=== PATIENT | female | born 1950 | race Two or more races ===

== ENCOUNTER → 2020-12-21 | Outpatient (CLI) | payer MEDICARE, OTHER ==
--- NOTE | 2020-12-21 10:21 | MR ---
EXAMINATION TYPE: MR lumbar spine wo con DATE OF EXAM: 12/21/2020 COMPARISON: Lumbar spine x-ray December 21, 2013 HISTORY: Low back pain into nhung legs TECHNIQUE: Multiplanar, multisequence imaging of the lumbar spine is performed without IV contrast. FINDINGS: Sagittal images of the lumbar spine show vertebral body heights to appear satisfactory. Sli ght grade 1 retrolisthesis L4 on L5. Multilevel disc desiccation. There is moderate to advanced disc space narrowing with heterogeneous Modic type II endplate changes L4-L5 level . There is moderate dis c space narrowing with vacuum disc phenomenon L5-S1 level. There is mild/moderate disc space narrowin g L3-L4 level. The conus medullaris is normal in position and signal ending at L1-L2 disc space level . The bone marrow signal intensity is overall heterogeneous Axial images show mild facet arthropathy T12-L1 level. Axial images at L1-L2 level show mild to moderate facet degenerative changes and ligamentum flavum hy pertrophy mildly effacing posterior lateral thecal sac laterally. Axial images at L2-L3 level show moderate facet degenerative changes and ligament flavum hypertrophy effacing posterior lateral thecal sac bilaterally. Axial images at L3-L4 level shows moderate facet degenerative changes and ligamentum flavum hypertrop hy effacing posterior lateral thecal sac. There is mild/moderate broad disc bulge effacing the anteri or thecal sac on axial image 13. There is mild bilateral anterior inferior neural foraminal narrowing . Axial images at L4-L5 levels with spondylolisthesis with moderate broad disc bulge and right paracent ral disc protrusion component effacing the anterior thecal sac. There is [id number] facet degen erative changes bilaterally. There is moderate bilateral inferior neural foraminal narrowing. Axial images at L5-S1 level show mild/moderate facet arthropathy bilaterally. There is moderate broad disc bulge minimally effacing anterior thecal sac. There is moderate bilateral neural foraminal narr owing noted. Findings slightly greater on the right. Paraspinal muscle bulk is fairly well preserved. IMPRESSION: Multilevel degenerative changes in the lumbar spine as detailed above.
== END | disposition home or self-care (01) ==
LOC: RADMRIMAIN 09:24
PROVIDERS: ATTEND Family Medicine
DX: M51.37 Other intervertebral disc degeneration, lumbosacral region (principal); M51.27 Other intervertebral disc displacement, lumbosacral region; M99.73 Connective tissue and disc stenosis of intervertebral foramina of lumbar region; M47.816 Spondylosis without myelopathy or radiculopathy, lumbar region
CPT/HCPCS: 72148

== ENCOUNTER → 2021-01-10 | Outpatient (CLI) | payer MEDICARE, OTHER ==
--- NOTE | 2021-01-13 11:16 | MM ---
Reason for exam: screening (asymptomatic). Last mammogram was performed 7 years and 6 months ago. History: Patient is postmenopausal. Physical Findings: A clinical breast exam by your physician is recommended on an annual basis and results should be correlated with mammographic findings. MG 3D Screening Mammo W/Cad Bilateral CC and MLO view(s) were taken. Prior study comparison: July 10, 2013, mammogram, performed at [facility]. The breast tissue is heterogeneously dense. This may lower the sensitivity of mammography. Scattered benign calcifications. There is no discrete abnormality. No significant changes when compared with prior studies. ASSESSMENT: Benign, BI-RAD 2 RECOMMENDATION: Routine screening mammogram of both breasts in 1 year.
== END | disposition home or self-care (01) ==
LOC: RADMAMWWP 07:58
PROVIDERS: ATTEND Family Medicine
DX: Z12.31 Encounter for screening mammogram for malignant neoplasm of breast (principal); Z78.0 Asymptomatic menopausal state
CPT/HCPCS: 77063; 77067

== ENCOUNTER 2021-02-13 12:47 | Emergency (ER) | payer MEDICARE, OTHER ==
[2021-02-13 13:04] VITALS: BP 123/70; PULSE 80; RESP 18; TEMP 98
--- NOTE | 2021-02-13 14:02 | XR ---
EXAMINATION TYPE: XR shoulder complete RT DATE OF EXAM: 02/13/2021 CLINICAL HISTORY: Pain since falling injury one week ago. TECHNIQUE: Three views of the right shoulder are obtained. COMPARISON: None. FINDINGS: There is no acute fracture/dislocation evident in the right shoulder. Mild to moderate geovanni rowing glenohumeral joint with mild spurring. Acromioclavicular joint shows mild narrowing. Distal a cromion morphology unremarkable. The visualized ribs are intact and unremarkable. IMPRESSION: There is no acute fracture or dislocation in the right shoulder.
--- NOTE | 2021-02-13 14:03 | XR ---
EXAMINATION TYPE: XR ankle complete LT DATE OF EXAM: 02/13/2021 COMPARISON: NONE HISTORY: Pain FINDINGS: Three views of the ankle demonstrate the ankle mortise to be intact and symmetric. There is an avulsi on fracture of the lateral malleolus with soft tissue edema and hematoma. Calcaneal spurs are noted. IMPRESSION: 1. Avulsion fracture lateral malleolus.
--- NOTE | 2021-02-13 14:10 | ED ---
Lower Extremity Injury HPI - General Chief Complaint: Extremity Injury, Lower Stated Complaint: ankle injury Time Seen by Provider: 02/13/21 13:16 Source: patient, family Mode of arrival: ambulatory Limitations: language barrier - History of Present Illness Initial Comments: 70-year-old female presents to the emergency department with a chief complaint of left ankle pain. States about one week ago she suffered a fall with an inversion to the left ankle and now she is complaining of pain. States that she has developed swelling in the region which has gradually improved, however it has also returned over the last few days after she has been ambulating more unusual. She also reports an injury to the right shoulder during to follow denies any head injuries or loss of consciousness or blood thinners. She denies any paresthesias or weakness in the region. - Related Data Home Medications Medication Instructions Recorded Confirmed Citalopram Hydrobromide [CeleXA] 20 mg PO DAILY 01/24/16 01/24/16 LORazepam [Ativan] 0.5 mg PO HS 01/24/16 01/24/16 Sertraline [Zoloft] 25 mg PO DAILY 01/24/16 01/24/16 Previous Rx's Medication Instructions Recorded Pantoprazole Sodium [Protonix] 20 mg PO BID #14 tab 01/24/16 Allergies Allergy/AdvReac Type Severity Reaction Status Date / Time No Known Allergies Allergy Verified 02/13/21 12:59 Review of Systems ROS Statement: Those systems with pertinent positive or pertinent negative responses have been documented in the HPI. ROS Other: All systems not noted in ROS Statement are negative. Past Medical History Past Medical History: GERD/Reflux History of Any Multi-Drug Resistant Organisms: None Reported Past Surgical History: No Surgical Hx Reported Past Psychological History: No Psychological Hx Reported Smoking Status: Never smoker Past Alcohol Use History: None Reported Past Drug Use History: None Reported General Exam Limitations: language barrier General appearance: alert, in no apparent distress Head exam: Present: atraumatic, normocephalic, normal inspection Eye exam: Present: normal appearance, PERRL, EOMI Pupils: Present: normal accommodation ENT exam: Present: normal exam, normal oropharynx, mucous membranes moist Respiratory exam: Present: normal lung sounds bilaterally. Absent: respiratory distress Cardiovascular Exam: Present: regular rate, normal rhythm, normal heart sounds. Absent: systolic murmur Extremities exam: Present: tenderness (Lateral malleoli tenderness of the left ankle. No midfoot or fifth metatarsal tenderness. Also some tenderness over the right anterior deltoid), normal capillary refill, other (Palpable DP and PT bilaterally. Sensation is intact.). Absent: normal inspection (Mild swelling noted on the left ankle. No signs of ecchymosis), full ROM (Limited range of motion with inversion of the left ankle), pedal edema, joint swelling, calf tenderness Back exam: Present: normal inspection, full ROM. Absent: tenderness Neurological exam: Present: alert, oriented X3 Psychiatric exam: Present: normal affect, normal mood Skin exam: Present: warm, dry, intact, normal color Course Vital Signs 02/13/21 13:00 Temperature 98 F Pulse Rate 80 Respiratory 18 Rate Blood Pressure 123/70 O2 Sat by Pulse 97 Oximetry Procedures - Orthopedic Splinting/Casting Injury #1 Side: left Lower Extremity Injury Location: ankle Lower Extremity Immobilizer: posterior splint, stirrup splint, Alex wrap, synthetic pre-padded splint Other Orthopedic Equipment: crutches Medical Decision Making - Medical Decision Making 70-year-old female presents to emergency Department with a chief complaint of ankle pain and fall. On physical examination, she is neurovascularly intact. X-ray reveals an avulsion fracture of the lateral malleolus. X-ray of the shoulder is unremarkable. I did apply a posterior short leg splint with ankle stirrup. Advised to follow-up with her resume specialist Dr. Hensley. Otherwise Tylenol or Motrin for symptom control. Return parameters were t horoughly discussed the patient was in a standing agreeable. Grandson is also they're to translate. Case discussed with Dr. Horta. Disposition Clinical Impression: Closed left ankle fracture, Fall Disposition: HOME SELF-CARE Condition: Stable Instructions (If sedation given, give patient instructions): Ankle Fracture (DC) Additional Instructions: Follow-up with Dr. hensley. Return to emergency department if symptoms worsen. Is patient prescribed a controlled substance at d/c from ED?: No Referrals: Mat Clarke MD [Primary Care Provider] - 1-2 days Shena Hensley DO [Doctor of Osteopathic Medicine] - 1-2 days Time of Disposition: 14:27
== END 2021-02-13 15:02 | disposition home or self-care (01) ==
LOC: EC 12:47
DX: S82.892A Other fracture of left lower leg, initial encounter for closed fracture (principal); K21.9 Gastro-esophageal reflux disease without esophagitis; W19.XXXA Unspecified fall, initial encounter
CPT/HCPCS: 29515; 99283

== ENCOUNTER → 2022-03-10 | Outpatient (CLI) | payer MEDICARE, OTHER ==
[2022-03-10 10:02] LABS: Appearance,Urine Clear (Clear); Bilirubin,Urine Negative (Negative); Blood,Urine Negative (Negative); Color,Urine Yellow; Glucose,Urine (UA) Negative (Negative); Ketones,Urine Negative (Negative); Leukocyte Esterase,Urine Large (Negative); Mucus,Urine Moderate /hpf; Nitrite,Urine Negative (Negative); PH, Urine 5.5 (5.0-8.0); Protein,Urine Negative (Negative); RBC,Urine <1 /hpf (0-5); Specific Gravity,Urine 1.017 (1.001-1.035); Squamous Epithelial Cell,Urine 1 /hpf (0-4); Urobilinogen,Urine <2.0 mg/dL (<2.0); WBC,Urine 22 /hpf (0-5)
--- NOTE | 2022-03-10 10:32 | XR ---
EXAMINATION TYPE: XR chest 2V DATE OF EXAM: 03/10/2022 COMPARISON: Chest x-ray 01/24/2016 HISTORY: Presurgical testing TECHNIQUE: Frontal and lateral views of the chest are obtained. FINDINGS: There is no focal air space opacity, pleural effusion, or pneumothorax seen. The cardiac silhouette size is within normal limits. There is elevation the right hemidiaphragm. Patient is rotat ed. The osseous structures are intact. IMPRESSION: No acute cardiopulmonary process.
[2022-03-10 14:40] LABS: INR 1.03 (0.90-1.11); Prothrombin Time 11.6 sec (9.9-11.9)
== END | disposition home or self-care (01) ==
LOC: LABPAT 08:30
PROVIDERS: ATTEND Orthopaedic Surgery Orthopaedic Surgery of the Spine
DX: Z01.812 Encounter for preprocedural laboratory examination (principal)
CPT/HCPCS: 71046; 81001; 85610; 87070

== ENCOUNTER → 2022-03-17 | Outpatient (CLI) | payer MEDICARE, OTHER ==
[2022-03-17 10:08] LABS: Appearance,Urine Clear (Clear); Bilirubin,Urine Negative (Negative); Blood,Urine Negative (Negative); Color,Urine Yellow; Glucose,Urine (UA) Negative (Negative); Ketones,Urine Negative (Negative); Leukocyte Esterase,Urine Negative (Negative); Nitrite,Urine Negative (Negative); PH, Urine 8.5 (5.0-8.0); Protein,Urine Trace (Negative); Specific Gravity,Urine 1.018 (1.001-1.035); Urobilinogen,Urine <2.0 mg/dL (<2.0)
== END | disposition home or self-care (01) ==
LOC: LABPAT 08:51
PROVIDERS: ATTEND Orthopaedic Surgery Orthopaedic Surgery of the Spine
DX: Z01.812 Encounter for preprocedural laboratory examination (principal); M48.00 Spinal stenosis, site unspecified
CPT/HCPCS: 81003

== ENCOUNTER 2022-03-18 05:52 | Inpatient (IN) | payer MEDICARE, OTHER ==
[2022-03-13 09:57] VITALS: BMI 28.4
[~2022-03-18 05:52] MED LIST: ceFAZolin 1,000 MG in SODIUM CHLORIDE 0.9% IRRIGATIO 1,000 ML IRRIGATION PRN
[2022-03-18] MEDS ORDERED: DEXAMETHASONE SOD PHOSPHATE 4 MG/ML 1 ML VIAL IV ONE (06:08)
[2022-03-18] MEDS ORDERED: ONDANSETRON 4 MG/2 ML VIAL ONE (06:49)
[2022-03-18] MEDS ORDERED: LACTATED RINGERS 1,000 ML IV ONE ×2 (07:17→11:49)
[2022-03-18] MEDS: LACTATED RINGERS 1,000 ML IV SCH (07:17)
[2022-03-18] MEDS ORDERED: ONDANSETRON 4 MG/2 ML VIAL IVP ONE (07:17)
[2022-03-18] MEDS ORDERED: fentaNYL (PF) 50 MCG/ML 2 ML AMP ONE (07:25)
[2022-03-18] MEDS ORDERED: PHENYLEPHRINE-0.9% NACL SYG 1,000 MCG/10 ML SYRINGE ONE (07:25)
[2022-03-18] MEDS ORDERED: KETAMINE 10 MG/ML 20 ML VIAL ONE (07:25)
[2022-03-18] MEDS ORDERED: HEPARIN SODIUM,PORCINE 10,000 UNIT/ML 1 ML VIAL ONE (07:25)
[2022-03-18] MEDS ORDERED: SODIUM CHLORIDE 0.9% IRRIG 1,000 ML BTL IRRIGATION ONE (07:25)
[2022-03-18] MEDS ORDERED: SUCCINYLCHOLINE CHLORIDE 100 MG/5 ML SYR IV ONE (07:25)
[2022-03-18] MEDS ORDERED: NEOSTIGMINE 1 MG/ML 10 ML VIAL ONE (07:25)
[2022-03-18] MEDS ORDERED: MIDAZOLAM 2 MG/2 ML VIAL ONE (07:25)
[2022-03-18] MEDS ORDERED: LIDOCAINE 2% INJ 20 MG/ML (2 ML VIAL) ONE (07:25)
[2022-03-18] MEDS ORDERED: ePHEDrine 50 MG/ML 1 ML VIAL ONE (07:25)
[2022-03-18] MEDS ORDERED: ROCURONIUM 10 MG/ML (5 ML VIAL) IV ONE (07:25)
[2022-03-18] MEDS ORDERED: GLYCOPYRROLATE 0.2 MG/ML 2 ML VIAL ONE (07:25)
[2022-03-18] MEDS ORDERED: GELATIN SPONGE,ABSORB (SMALL) 1 EACH SPONGE TOPICAL ONE (08:09)
[2022-03-18] MEDS ORDERED: THROMBIN (BOVINE) 5,000 UNIT VIAL TOPICAL ONE (08:09)
[2022-03-18] MEDS ORDERED: BUPIVACAIN-EPI 0.25%-1:200,000 30 ML VIAL SQ ONE (08:09)
[2022-03-18] MEDS ORDERED: BENZOCAINE/MENTHOL LOZENG 1 EACH LOZENGE MUCOUS MEM PRN (12:00)
[2022-03-18] MEDS ORDERED: HYDROmorphone 0.5 MG/0.5 ML SYRINGE IVP PRN (12:00)
[2022-03-18] MEDS ORDERED: ACETAMINOPHEN TAB 500 MG TAB PO PRN (12:05)
--- NOTE | 2022-03-18 12:12 | P.OP ---
Date of Procedure: 03/18/22 Preoperative Diagnosis: Severe spinal stenosis L3 4 L4 5, degenerative disc disease, spondylolisthesis L3 4, facet arthrosis, low back pain, lower extremity radiculopathy, neurogenic claudication Postoperative Diagnosis: Same Anesthesia: GETA Pathology: none sent Condition: stable Disposition: PACU Description of Procedure: DESCRIPTION OF PROCEDURE(S): BRIEF OPERATIVE NOTE Preoperative Diagnosis: Spondylolisthesis , spinal stenosis , lower extremity radiculopathy, lower extremity weakness, neurogenic claudication, low back pain, degenerative disc disease Postoperative Diagnosis: Same Procedure: Laminectomy and decompression L3 [address] navigation aided Minimally invasive Posterior lateral decompression and facet fusion L3 4 L4 5 Minimally invasive Transforaminal lumbar interbody fusion for a 360 fusion L3 4 L4 5 Discectomy for decompression L3 4 L4 5 Placement of interbody graft L3 4 L4 5 Use of computer navigation for fusion L3 4 and 5 Local autogenous bone grafting Aspiration of bone marrow from the vertebral body pedicle Use of bone graft extenders Surgeon: Dr. Hensley Patient Service Rep: Graham ALVAREZ who is present throughout the entire the case persistence during positioning, dissection, exposure, visualization, and all crucial elements of the case as well as closure. Anesthesia: General anesthesia per Estimated blood loss: Approximately 300 mL, with 123 mL given back through Cell Saver Complications: None apparent Components implanted: K2M minimally invasive [place] pedicle screw system withscrews measuring 6.5 mm in diameter to rods one [place] interbody cage with 10 mL of osteo amp bio4 bone graft substitute and 30 mL of the BX bone fibers to supplement the local autogenous bone graft and bone marrow aspirate Disposition: To recovery room in good stable condition. OPERATIVE INDICATIONS The patient has had severe issues at their lower extremity in her lower back over the past several years with significant worsening over the past several months. The patient only speaks minimal Ukrainian and has been accompanied by her daughter who functions well as a substance abuse technician for us. Over the past few months the patient had pain at their back and their lower extremities. The patient is having severe radicular symptoms at their lower extremity with weakness. The patient is having significant pain in their back. They are unable to obtain any comfort. We did aggressive conservative treatment with medications therapy and interventional pain management however thery were not having any relief. The patient also showed evidence of a listhesis with some dynamic instability. The patient has been through conservative treatment. We discussed various treatment options including surgery, and the patient wishes to proceed with surgery We discussed the risk, patient's alternatives and benefits of surgery including but not limited to, risk of bleeding risk of infection, risk of need for further surgery, risk of decreased, loss of motion, muscle function, malunion nonunion, hardware failure, nerve damage, paralysis, heart attack, blindness and . They understood issues with the current pandemic and the possibility of exposure. The patient had severe changes at her low back with significant debility and I felt that she would need inpatient admission as it was going to be difficult to manage her mobility and pain control postoperatively and would likely take greater than 2 midnights here in the hospital. OPERATIVE SUMMARY After discussing all the risks, patient alternatives and benefits at length, the patient elected to proceed with surgical intervention, signed informed consent, and presented for their procedure. The patient's daughter was at bedside and functioned as a substance abuse technician preoperatively. The patient was seen and examined in the preoperative holding area and the surgical site was marked. The patient was given antibiotics and brought to the operating room. The patient was sedated and intubated by anesthesia in standard fashion. The patient was positioned on to the operating room table in a prone position on the appropriate frame which was well-padded and well molded. We were careful to pad any bony prominences and pressure points. We were careful to maintain the patient's cervical spine and good neutral alignment and position throughout. The patient was prepped and draped in a normal standard fashion. An appropriate timeout and keystone protocol performed. We were able to proceed with the surgery. The local wound area was infiltrated with local anesthetic. Over the right iliac crest I was able to make small stab incisions and establish a guidepin screw fixation to the iliac crest 2. I was able place the computer referencing device over the guidepins to establish an appropriate reference point for the Ziem CT navigation. We then were able to place patient in an appropriate drape and do a navigation spin for visualization and 3-D reconstruction of the lumbar spine. I was able utilize C-arm guidance and navigation to establish appropriate position over the pedicles bilaterally at the appropriate levels at L3 4 and 5 . With the appropriate levels confirmed was able to make small incisions over the appropriate pedicle sites bilaterally. Utilizing the computer navigation device I was able to establish bony landmarks at the right iliac crest for a bony reference point for the navigation device. I was able to establish a Jamshidi needle over the lateral aspect of the pedicle and advanced the trocar into the pedicle being careful not to breech superiorly inferiorly medially or laterally using computer navigation device. Position was confirmed regularly with AP and lateral images on C-arm and with the computer navigation device at the appropriate levels bilaterally. I was able to establish the trocar into the pedicle appropriately into the posterior aspect of the vertebral body bilaterally at the appropriate levels. This was done at each of the pedicle positions and each of the vertebrae. At the superior vertebrae of L3 on the right I was able to take approximately 25 mL of bone aspiration for use later in the case to supplement the allograft and autograft bone. I was able place the guidewire into the trocar and into the vertebral body appropriately under C-arm guidance. Dissection was taken down over the wire to the appropriate starting position for the screw placed. The appropriate length screw was chosen, threaded over the guidewire and screwed appropriately into the pedicle and vertebral body under C-arm guidance in excellent alignment and position with good bony purchase. This is done at each of the screw sites at the appropriate levels at L3 4 and 5. With the screws intact I extended the incision to connect the screw hole sites on the most symptomatic side on the right. I dissected down to establish access over the pars and lamina to the base of the spinous process. I was able to expose the facet joint. The capsule the facet was taken down and showed some facet arthrosis at the joint. I was able to use a combination of curettes and Kerrison rongeurs and a high-speed drill to take down the facet joint and do a facetectomy. At both levels there was severe facet arthrosis and significant osteophytic spurring. I was able get excellent foraminal decompression and central decompression with undermining across midline to perform a laminectomy centrally and contralaterally. I was able get good central decompression. The ligamentum flavum was taken down to further decompress centrally and at bilateral neural foramen. I was able to expose the disc space and visualize the traversing nerve root. Note was made of some disc protrusion and disc herniation that was abutting the traversing nerve root at the level causing further compression of the nerve root. I first worked at L4 5 and L3 4 At L4 5 there is near complete collapse of the disc space. I was able to establish a annulotomy at the appropriate level protecting soft tissue and neural structures. Note was made of some disc desiccation at the disc. I performed a complete discectomy with accommodation of curettes and rasps and scrapers. I was able get good endplate preparation at the disc space. I sized for the appropriate size interbody spacer protecting the soft tissue and neural structures. The wound was copiously irrigated and suctioned dry. There is no evidence of any dural tear or leak. This was done at L3 4 and L4 5. I was able to pack the disc space with local autogenous bone graft as well as a small amount of bone graft which was also placed into the interbody cage itself. Protecting the soft tissue structures and neural structures I was able place the interbody cage in good alignment and good position with good fit and fill at the interbody space. Position was confirmed with C-arm guidance. Good hemostasis maintained. There is no evidence of any dural tear or leak. The wound was irrigated and suctioned dry. With the hardware intact, intraoperative C-arm imaging was again taken which showed good alignment and position of the hardware at the appropriate levels at L3 4 and 5. We were then able to measure, contour and place the rods and appropriate hardware bilaterally. I was able to place capcrews, tighten them down, and torque them with the torque screwdriver appropriately. With this intact I was able to place the local autogenous bone graft with additional bone graft enhancer as necessary into the posterior lateral gutters over the decorticated transverse processes and facet joints on the contralateral side. The remainder of the bone graft was placed over the facet joint on the contralateral side after taking down the facet joint capsule. With the bone graft intact, a stable construct, and good decompression at the appropriate levels, we were able to proceed with closure. Good hemostasis was maintained. There is no evidence of dural tear or leak. The fascia was closed for a watertight closure. he subcuticular tissue was closed with absorbable suture. The wound was cleaned and dried and dressed with the appropriate dressing. The drapes were broken down. The patient was gently rolled back onto their hospital bed being careful to maintain their cervical spine and good neutral alignment and position. They were woken up by anesthesia, extubated, and brought to the recovery room in good stable condition. The patient will be admitted to the hospital for appropriate postoperative care, medical management and monitoring. We will continue to follow them closely about the postoperative course.
--- NOTE | 2022-03-18 12:19 | FL ---
EXAMINATION TYPE: FL guidance operating room DATE OF EXAM: 03/18/2022 HISTORY: Fluoroscopy time 20 seconds of fluoroscopy provided. IMPRESSION: 1. Fluoroscopy time.
[2022-03-18] MEDS: HYDROmorphone 0.5 MG/0.5 ML SYRINGE IVP PRN ×2 (12:46→15:21)
[2022-03-18] MEDS: SODIUM CHLORIDE 0.9% 1,000 ML IV SCH (16:29)
--- NOTE | 2022-03-18 17:26 | P.CONS ---
History of Present Illness - Reason for Consult Consult date: 03/18/22 Medical management Requesting physician: Shena Hensley - Chief Complaint Chronic back pain with neurogenic claudication - History of Present Illness 71-year-old Bosn[place] female with past medical significant for chronic back pain with spinal stenosis with lower extremity weakness, neurogenic claudication postoperative day #0 for Laminectomy L3-4, L 4-5. Patient does not have a significant past medical history except for depression and anxiety and chronic back pain. She is alert oriented 3. She does not speak Occitan her son and her granddaughter at the bedside helping with translation. Patient denies any chest pain or shortness of breath. Patient denies any nausea vomiting or abdominal pain. Review of system: All 14 review of systems evaluated and all negative except for above. Physical examination: General: non toxic, no distress, appears at stated age Derm: warm, dry Head: atraumatic, normocephalic, symmetric Eyes: EOMI, no lid lag, anicteric sclera Mouth: no lip lesion, mucus membranes moist Cardiovascular: S1S2 reg, no murmur, positive posterior tibial pulse bilateral, Lungs: CTA bilateral, no rhonchi, no rales , no accessory muscle use Abdominal: soft, nontender to palpation, no guarding, no appreciable organomegaly Ext: no gross muscle atrophy, no edema, no contractures Neuro: CN II-XI grossly intact, no focal neuro deficits Psych: Alert, oriented, appropriate affect Assessment and plan: #Chronic pain secondary to Spinal stenosis with right lower extremity radiculopathy and neurogenic claudication -Status post Laminectomy L3-4, L 4-5. -PT/OT -Pain control and DVT prophylaxis per primary team #Depression and anxiety -Resume trazodone and Celexa #GERD -Resume PPIs Thank you for allowing us to participate in the care of this pleasant patient. Do not hesitate to contact us with questions. Someone can be reached from the [facility] hospitalist group all hours of the day at [phone] or via [employer]. Past Medical History Past Medical History: GERD/Reflux, Osteoarthritis (OA) History of Any Multi-Drug Resistant Organisms: None Reported Past Surgical History: No Surgical Hx Reported Past Anesthesia/Blood Transfusion Reactions: No Reported Reaction Additional Past Anesthesia/Blood Transfusion Reaction / Comm: no hx blood transfusion Past Psychological History: Anxiety, Depression Smoking Status: Never smoker Past Alcohol Use History: None Reported Past Drug Use History: None Reported - Past Family History Mother Family Medical History: No Reported History Medications and Allergies Home Medications Medication Instructions Recorded Confirmed Type Citalopram Hydrobromide [CeleXA] 20 mg PO QAM 01/24/16 03/13/22 History Acetaminophen Tab [Tylenol Tab] 500 - 1,000 mg PO Q6HR PRN 03/13/22 03/13/22 History Aspirin 81 mg PO DAILY 03/13/22 03/13/22 History Omeprazole [PriLOSEC] 40 mg PO AC-[id number] 03/13/22 03/13/22 History traZODone HCL [Desyrel] 50 mg PO HS 03/13/22 03/13/22 History nitrofurantoin macrocrystaL 100 mg PO BID 03/18/22 03/18/22 History [Nitrofurantoin] Allergies Allergy/AdvReac Type Severity Reaction Status Date / Time No Known Allergies Allergy Verified 03/18/22 06:32 Physical Exam Vitals: Vital Signs Temp Pulse Pulse Resp BP Pulse Ox 03/18/22 14:30 97.6 F 74 18 125/71 97 03/18/22 13:45 77 16 126/64 100 03/18/22 13:30 79 16 131/64 99 03/18/22 13:15 71 16 122/64 97 03/18/22 13:00 74 16 119/63 100 03/18/22 12:45 75 16 123/66 98 03/18/22 12:30 74 16 117/64 98 03/18/22 12:15 85 16 107/59 99 03/18/22 12:00 97.0 F L 80 16 134/68 99 03/18/22 06:42 97.2 F L 67 20 149/82 96 Intake and Output 03/18/22 03/18/22 03/18/22 06:59 14:59 22:59 Intake Total 2851 Output Total 530 Balance 2321 Intake: IV 2851 Output: Urine 230 Estimated Blood Loss 300 Other: Weight 80 kg 80 kg
[2022-03-18] MEDS: ONDANSETRON 4 MG/2 ML VIAL IVP PRN (19:00)
[2022-03-18] MEDS: NITROFURANTOIN MONOHYD/M-CRYST 100 MG CAP PO SCH (20:14)
[2022-03-18] MEDS: traZODone HCL 50 MG TAB PO SCH (20:14)
[2022-03-18] MEDS: CYCLOBENZAPRINE 10 MG TAB PO PRN (22:23)
[2022-03-18] MEDS: HYDROmorphone 1 MG/ML 1 ML SYRINGE IVP PRN (23:40)
[2022-03-19] MEDS: LACTATED RINGERS 1,000 ML IV SCH (00:38)
[2022-03-19] MEDS: HYDROmorphone 1 MG/ML 1 ML SYRINGE IVP PRN ×2 (03:40→08:26)
[2022-03-19] MEDS: SODIUM CHLORIDE 0.9% 1,000 ML IV SCH ×2 (03:48→15:45)
[2022-03-19] MEDS: HYDROcodone/APAP 5-325MG 1 EACH TAB PO PRN ×4 (07:04→23:29)
[2022-03-19] MEDS: CITALOPRAM HYDROBROMIDE 20 MG TAB PO SCH (08:24)
[2022-03-19] MEDS: PANTOPRAZOLE 40 MG TABLET PO SCH (08:24)
[2022-03-19] MEDS: ASPIRIN 81 MG PO SCH (08:24)
[2022-03-19] MEDS: SENNOSIDES-DOCUSATE SODIUM 1 EACH TAB PO SCH (08:24)
[2022-03-19] MEDS: NITROFURANTOIN MONOHYD/M-CRYST 100 MG CAP PO SCH ×2 (08:24→20:30)
[2022-03-19 09:00] LABS: Basophils # (A) 0.01 X 10*3/uL (0.00-0.10); Basophils % (A) 0.1 %; Eosinophils # (A) 0 X 10*3/uL (0.04-0.35); Eosinophils % (A) 0 %; HCT 30.9 % (37.2-46.3); HGB 10.2 g/dL (12.0-15.0); Immature Grans, Automated 0.4 %; Lymphocytes # (A) 0.98 X 10*3/uL (0.90-5.00); Lymphocytes % (A) 11.5 %; MCH 31.3 pg (27.0-32.0); MCV 94.8 fL (80.0-97.0); Mean Platelet Volume 11.1 fL (9.5-12.2); Monocytes # (A) 0.91 X 10*3/uL (0.20-1.00); Monocytes % (A) 10.6 %; NRBC Per 100 WBC 0 /100 WBCS (0.0-0.0); Neutrophils # (A) 6.62 X 10*3/uL (1.80-7.70); Neutrophils % (A) 77.4 %; Platelet Count 145 X 10*3/uL (140-440); RBC 3.26 X 10*6/uL (4.10-5.20); RDW 13.3 % (11.5-14.5); WBC 8.55 X 10*3/uL (4.50-10.00)
[2022-03-19 09:03] LABS: African American GFR (CKD) 113.7 (60.0-200.0); Anion Gap 8.8 mmol/L (10.00-18.00); Calcium 8.3 mg/dL (8.7-10.3); Carbon Dioxide 23.2 mmol/L (20.0-27.5); Non-African American GFR(CKD) 98.1 (60.0-200.0); Potassium 3.9 mmol/L (3.5-5.5)
--- NOTE | 2022-03-19 11:08 | P.PN ---
Progress Note - Text Progress Note Date: 03/19/22 Postoperative day #1 Patient is seen and examined today at bedside. The patient has some pain around the surgical site as expected. Pain is being controlled with medication. Her relative is there at bedside to act as a tapper balance wheel screw hole. The patient states that her legs are doing better but pain in her back is significant. She was able to sit up but only for short times morning so far. She is tolerating some diet. She still has her Avila intact. Physical Exam Afebrile with stable vital signs Abdomen is soft nontender. Chest has good excursion deep and space expiration The incision site is clean dry and intact. No erythema there is no purulence. Extremities have not had neurologic change from prior to surgery. She has sustained dorsal flexion plantar flexion and EHL intact at her bilateral lower extremities Calves and thighs were soft nontender without evidence of DVT. Assessment/Plan Postoperative day #1 status post minimally invasive decompression fusion L3 4 L4 5 for her severe spinal stenosis and lower extremity radiculopathy and neurogenic claudication Patient is progressing as expected from the surgery. She is already having improvement in her lower extremities bilaterally with the decompression. Her pain is primarily that from her surgical site with this procedure. We will continue to increase the patient's mobilization with therapy. We need to get the Avila out as she is able. We will continue her antibiotics while the Avila is intact. We will continue oxana we will have case management see her as well for discharge planning n control with oral or IV medications. We'll continue to follow patient closely.
[2022-03-19] MEDS: CYCLOBENZAPRINE 10 MG TAB PO PRN ×2 (13:28→23:20)
--- NOTE | 2022-03-19 14:02 | P.PN ---
Subjective Progress Note Date: 03/19/22 71-year-old female admitted 2 days ago for an elective L3, L4, L5 laminectomy. She is postop day #1. She is complaining of moderate to severe pain on the surgical site as expected just improving with analgesics. She was able to sit up at the side of breath today with therapy but has not ambulated yet. Denies any numbness or tingling in her lower extremities, no focal numbness or weakness, no fevers or chills, no shortness of breath. Patient does not speak Kiswahili, her [id number] is at bedside acting as a respite care provider Objective - Vital Signs Vital signs: Vital Signs Temp 99.4 F 03/19/22 11:28 Pulse 91 03/19/22 11:28 Resp 16 03/19/22 11:28 BP 95/52 03/19/22 11:28 Pulse Ox 95 03/19/22 11:28 FiO2 Intake & Output 03/18/22 03/19/22 03/19/22 18:59 06:59 18:59 Intake Total 3091 0 Output Total 530 1000 1700 Balance 2561 -1000 -1700 Weight 80 kg Intake: IV 2851 Oral 240 0 Output: Urine 230 1000 1700 Estimated Blood Loss 300 Other: Voiding Method Indwelling Catheter Indwelling Catheter - Exam General: In no acute distress, awake alert and oriented Derm: warm, dry Head: atraumatic, normocephalic, symmetric Eyes: EOMI, pupils equal round reactive Mouth: no lip lesion, mucus membranes moist Cardiovascular: S1S2 reg, no murmur, positive posterior tibial pulse bilateral, Lungs: CTA bilateral, no rhonchi, no rales , no accessory muscle use Abdominal: soft, nontender to palpation, no guarding, no appreciable organomegaly Ext: no gross muscle atrophy, no edema, no contractures Neuro: CN II-XI grossly intact, no focal neuro deficits Psych: Alert, oriented, appropriate affect - Labs CBC & Chem 7: 03/19/22 05:32 03/19/22 05:32 Labs: Abnormal Lab Results - Last 24 Hours (Table) 03/19/22 03/19/22 Range/Units 05:32 05:32 RBC 3.26 L (4.10-5.20) X 10*6/uL Hgb 10.2 L (12.0-15.0) g/dL Hct 30.9 L (37.2-46.3) % Eosinophils # 0 L (0.04-0.35) X 10*3/uL Sodium 134 L (135-145) mmol/L Anion Gap 8.80 L (10.00-18.00) mmol/L Creatinine 0.5 L (0.6-1.5) mg/dL BUN/Creatinine Ratio 24.00 H (12.00-20.00) Ratio Calcium 8.3 L (8.7-10.3) mg/dL Assessment and Plan Plan: Chronic pain secondary to Spinal stenosis with right lower extremity radiculopathy and neurogenic claudication -Postop day #1 Status post Laminectomy L3-4, L 4-5. -Continue PT/OT -Pain control and DVT prophylaxis #Depression and anxiety -Resume trazodone and Celexa #GERD -Resume PPIs Time with Patient: Less than 30
[2022-03-19] MEDS: traZODone HCL 50 MG TAB PO SCH (20:30)
[2022-03-20] MEDS: LACTATED RINGERS 1,000 ML IV SCH (03:05)
[2022-03-20] MEDS: HYDROcodone/APAP 5-325MG 1 EACH TAB PO PRN ×3 (03:42→16:44)
[2022-03-20] MEDS: SODIUM CHLORIDE 0.9% 1,000 ML IV SCH ×2 (03:42→17:16)
--- NOTE | 2022-03-20 07:16 | P.PN ---
Progress Note - Text Progress Note Date: 03/20/22 Orthopedic Spine History of present illness: Patient is a pleasant 71-year-old female who is seen and examined at the bedside following posterior lateral decompression and fusion performed Wednesday. Patient does not speak Lebanese. Her 17-year-old granddaughter is sitting at the bedside to act as a crm system administrator. Patient continues to have significant pain in her lumbar spine. She's had difficulty with mobility due to her pain. She was able to sit at the bedside yesterday but was not able to ambulate throughout the room. She denies any lower extremity weakness or radiculopathy bilaterally. She states her pain is significant at her lumbar spine. Her Avila catheter remains intact. She was able to eat some breakfast this morning. Patient's family states they are wishing for the patient to be discharged home with home care at the time of discharge. They do not want the patient to be discharged to a rehabilitation facility. Currently does not complain of nausea, vomiting, fever, or chills. Patient states pain is being controlled. Patient had more difficulty with pain control overnight. Physical Exam Lumbar Fusion: Status post surgical day number 2 Patient is awake, alert, and oriented 3 Vital signs stable Good chest excursion with deep inspiration and expiration Dorsiflexion, plantarflexion, and extensor hallucis longus positive sustained bilaterally No signs or symptoms of DVT; no calf pain; pneumatic cuffs intact bilateral lower extremities Optifoam dressings are intact with some blood at the dressing sites over the lumbar spine and right iliac crest; no erythema, purulence, or signs of infection Neurovascularly intact bilaterally lower extremities Avila catheter intact Assessment: Status post L3-4 and L4-5 minimally invasive posterior lateral decompression and fusion with transforaminal lumbar interbody fusion Low back pain L3-4 and L4-5 severe spinal stenosis L3-4 spondylolisthesis Lumbar degenerative disc disease Lumbar facet arthrosis Neurogenic claudication Plan: 1. Ambulate as tolerated; work with Physical Therapy to increase mobilization. It was discussed in significant detail the importance of trying to increase the patient's mobility and ambulation with physical therapy today. A prescription is written, signed, and provided a case management to obtain a 2 wheeled walker to help the patient age and ambulation. This walker will be obtained prior to the patient's discharge home. 2. Continue pain control with IV and oral medications MAPS has been reviewed today, 03/20/2022, with an Overall Overdose Risk Score of . An "Opiod Start Talking" Form has been signed and placed in the patient's chart. A prescription has been written for Patient is also given a prescription for cyclobenzaprine 10 mg 1 tab 3 times a day as needed for muscle spasm, dispensed #60. Patient given a prescription for Senokot-S 1 tab twice a day as needed for constipation, dispensed #60. Medications are sent to the patient's regular pharmacy per request of the family. 3. Dressings will be removed and changed to nonstick Telfa and Tegaderm; patient may shower with dressings intact 4. We will plan to discontinue her Avila catheter once the patient is able to increase her mobility and ambulation. We would like to discontinue her Avila catheter today. 5. Medical management can continue to manage patient for patient's other medical diagnoses 6. We will continue to follow the patient closely; patient continues to have difficulty with mobilization and ambulation postoperatively. She has been working with physical therapy but is having significant difficulty postoperatively increasing her mobilization. She was only able to sit at a bedside yesterday. She continues to require IV and oral medications for pain control. I do not feel the patient is ready for discharge home. Patient will continue to remain in the hospital until her symptoms improve and her pain is better controlled. Patient should be inpatient status during her admission. Patient will most likely remain in the hospital over the next couple days postoperatively. She has been seen by case management who is setting up home care at the time of discharge. 7. Patient can follow-up with Graham Huang PA-C or Dr. Uriel Hensley at [facility] in 2-3 weeks following discharge
[2022-03-20 08:43] LABS: Basophils # (A) 0.01 X 10*3/uL (0.00-0.10); Basophils % (A) 0.1 %; Eosinophils # (A) 0 X 10*3/uL (0.04-0.35); Eosinophils % (A) 0 %; HCT 31.1 % (37.2-46.3); HGB 10.3 g/dL (12.0-15.0); Immature Grans, Automated 0.5 %; Lymphocytes % (A) 8.6 %; MCH 31.7 pg (27.0-32.0); MCHC 33.1 g/dL (32.0-37.0); MCV 95.7 fL (80.0-97.0); Mean Platelet Volume 10.7 fL (9.5-12.2); Monocytes # (A) 0.81 X 10*3/uL (0.20-1.00); Monocytes % (A) 8.7 %; NRBC Per 100 WBC 0 /100 WBCS (0.0-0.0); Neutrophils # (A) 7.63 X 10*3/uL (1.80-7.70); Neutrophils % (A) 82.1 %; Platelet Count 137 X 10*3/uL (140-440); RBC 3.25 X 10*6/uL (4.10-5.20); RDW 13.2 % (11.5-14.5)
[2022-03-20 09:06] LABS: African American GFR (CKD) 113.7 (60.0-200.0); Albumin 3.2 g/dL (3.8-4.9); Albumin/Globulin Ratio 1.33 (1.60-3.17); Anion Gap 9.6 mmol/L (10.00-18.00); BUN/Creat Ratio 15.4 Ratio (12.00-20.00); Blood Urea Nitrogen 7.7 mg/dL (9.0-27.0); Calcium 8.7 mg/dL (8.7-10.3); Carbon Dioxide 22.4 mmol/L (20.0-27.5); Globulin 2.4 g/dL (1.6-3.3); Non-African American GFR(CKD) 98.1 (60.0-200.0); Potassium 3.9 mmol/L (3.5-5.5); Total Bilirubin 1.2 mg/dL (0.30-1.20); Total Protein 5.6 g/dL (6.2-8.2)
[2022-03-20] MEDS: ASPIRIN 81 MG PO SCH (09:16)
[2022-03-20] MEDS: PANTOPRAZOLE 40 MG TABLET PO SCH (09:16)
[2022-03-20] MEDS: CITALOPRAM HYDROBROMIDE 20 MG TAB PO SCH (09:16)
[2022-03-20] MEDS: SENNOSIDES-DOCUSATE SODIUM 1 EACH TAB PO SCH (09:16)
[2022-03-20] MEDS: NITROFURANTOIN MONOHYD/M-CRYST 100 MG CAP PO SCH (09:16)
[2022-03-20] MEDS: CYCLOBENZAPRINE 10 MG TAB PO PRN ×2 (09:19→16:44)
--- NOTE | 2022-03-20 16:45 | P.PN ---
Subjective Progress Note Date: 03/20/22 Postop day #2 for a posterior lateral decompression and fusion. She is still complaining of significant amount of pain this has improved compared to yesterday. She was able to stand up with therapy today and take a few steps. She denies any lower extremity weakness or numbness, rogers catheter will be removed today. She is tolerating a regular diet. Overall she is improving, p brisa is to be discharged home with home care within the next 24-48 hours Objective - Vital Signs Vital signs: Vital Signs Temp 97.7 F 03/20/22 12:07 Pulse 98 03/20/22 12:07 Resp 16 03/20/22 12:07 BP 119/73 03/20/22 12:07 Pulse Ox 98 03/20/22 12:07 FiO2 Intake & Output 03/19/22 03/20/22 03/20/22 18:59 06:59 18:59 Output Total 3200 2250 500 Balance -3200 -2250 -500 Output: Urine 3200 2250 500 Other: Voiding Method Indwelling Catheter Indwelling Catheter Indwelling Catheter # Voids 1 - Exam General: In no acute distress, awake alert and oriented Derm: warm, dry Head: atraumatic, normocephalic, symmetric Eyes: EOMI, pupils equal round reactive Mouth: no lip lesion, mucus membranes moist Cardiovascular: S1S2 reg, no murmur, positive posterior tibial pulse bilateral, Lungs: CTA bilateral, no rhonchi, no rales , no accessory muscle use Abdominal: soft, nontender to palpation, no guarding, no appreciable organome jimmy Ext: no gross muscle atrophy, no edema, no contractures Neuro: CN II-XI grossly intact, no focal neuro deficits Psych: Alert, oriented, appropriate affect - Labs CBC & Chem 7: 03/20/22 06:29 03/20/22 06:29 Labs: Abnormal Lab Results - Last 24 Hours (Table) 03/20/22 03/20/22 Range/Units 06:29 06:29 RBC 3.25 L (4.10-5.20) X 10*6/uL Hgb 10.3 L (12.0-15.0) g/dL Hct 31.1 L (37.2-46.3) % Plt Count 137 L (140-440) X 10*3/uL Immature Gran # 0.05 H (0.00-0.04) X 10*3/uL Lymphocytes # 0.80 L (0.90-5.00) X 10*3/uL Eosinophils # 0 L (0.04-0.35) X 10*3/uL Anion Gap 9.60 L (10.00-18.00) mmol/L BUN 7.7 L (9.0-27.0) mg/dL Creatinine 0.5 L (0.6-1.5) mg/dL Glucose 114 H (70-110) mg/dL Total Protein 5.6 L (6.2-8.2) g/dL Albumin 3.2 L (3.8-4.9) g/dL Albumin/Globulin Ratio 1.33 L (1.60-3.17) g/dL Assessment and Plan Plan: Chronic pain secondary to Spinal stenosis with right lower extremity radiculopathy and neurogenic claudication -Postop day #2 Status post posterior lateral decompression and fusion -pain improving but is still significant and is requiring IV narcotics -Patient will need to remain in the hospital until her pain is adequately controlled and she is ambulating well -Continue physical and occupational therapy -Family wishes for patient to be discharged home with home care #Depression and anxiety -Resume trazodone and Celexa #GERD -Resume PPIs Time with Patient: Less than 30
[2022-03-20] MEDS: HYDROmorphone 1 MG/ML 1 ML SYRINGE IVP PRN (18:13)
[2022-03-20] MEDS: traZODone HCL 50 MG TAB PO SCH (20:48)
[2022-03-21] MEDS: HYDROmorphone 1 MG/ML 1 ML SYRINGE IVP PRN ×2 (00:20→05:00)
[2022-03-21] MEDS: SODIUM CHLORIDE 0.9% 1,000 ML IV SCH ×2 (05:03→19:41)
[2022-03-21] MEDS: LACTATED RINGERS 1,000 ML IV SCH (06:22)
[2022-03-21 08:53] LABS: Basophils # (A) 0.01 X 10*3/uL (0.00-0.10); Basophils % (A) 0.1 %; Eosinophils # (A) 0.04 X 10*3/uL (0.04-0.35); Eosinophils % (A) 0.6 %; HCT 30.2 % (37.2-46.3); Immature Grans, Automated 0.4 %; Lymphocytes # (A) 1.08 X 10*3/uL (0.90-5.00); MCH 31.5 pg (27.0-32.0); MCHC 33.1 g/dL (32.0-37.0); MCV 95.3 fL (80.0-97.0); Mean Platelet Volume 10.7 fL (9.5-12.2); Monocytes % (A) 8.9 %; NRBC Per 100 WBC 0 /100 WBCS (0.0-0.0); Platelet Count 141 X 10*3/uL (140-440); RBC 3.17 X 10*6/uL (4.10-5.20); RDW 13.2 % (11.5-14.5); WBC 6.76 X 10*3/uL (4.50-10.00)
[2022-03-21] MEDS: ASPIRIN 81 MG PO SCH (09:35)
[2022-03-21] MEDS: SENNOSIDES-DOCUSATE SODIUM 1 EACH TAB PO SCH (09:35)
[2022-03-21] MEDS: PANTOPRAZOLE 40 MG TABLET PO SCH (09:36)
[2022-03-21] MEDS: CITALOPRAM HYDROBROMIDE 20 MG TAB PO SCH (09:36)
[2022-03-21] MEDS: CYCLOBENZAPRINE 10 MG TAB PO PRN ×2 (09:39→19:40)
[2022-03-21] MEDS: HYDROcodone/APAP 5-325MG 1 EACH TAB PO PRN ×2 (10:30→19:40)
[2022-03-21 11:18] LABS: Albumin/Globulin Ratio 1.2 (1.60-3.17); Anion Gap 7.9 mmol/L (10.00-18.00); BUN/Creat Ratio 15.5 Ratio (12.00-20.00); Blood Urea Nitrogen 9.3 mg/dL (9.0-27.0); Calcium 8.5 mg/dL (8.7-10.3); Carbon Dioxide 23.1 mmol/L (20.0-27.5); Globulin 2.5 g/dL (1.6-3.3); Non-African American GFR(CKD) 92.4 (60.0-200.0); Potassium 3.7 mmol/L (3.5-5.5); Total Bilirubin 0.9 mg/dL (0.30-1.20); Total Protein 5.5 g/dL (6.2-8.2)
--- NOTE | 2022-03-21 14:26 | P.PN ---
Subjective Progress Note Date: 03/21/22 Postop day #3 for a posterior lateral decompression and fusion. Pain is improving, controlled with oral narcotics. She is able to ambulate more with therapy today. She denies any lower extremity weakness or numbness, rogers catheter removed. She is tolerating a regular diet. Overall she is improving, plan is to be discharged home with home care within the next 24-48 hours Objective - Vital Signs Vital signs: Vital Signs Temp 98.9 F 03/21/22 05:00 Pulse 102 H 03/21/22 05:00 Resp 16 03/21/22 05:00 BP 138/76 03/21/22 05:00 Pulse Ox 95 03/21/22 05:00 FiO2 Intake & Output 03/20/22 03/21/22 03/21/22 18:59 06:59 18:59 Output Total 500 Balance -500 Output: Urine 500 Other: Voiding Method Indwelling Catheter Toilet Bedside Commode # Voids 1 2 - Exam General: In no acute distress, awake alert and oriented Derm: warm, dry Head: atraumatic, normocephalic, symmetric Eyes: EOMI, pupils equal round reactive Mouth: no lip lesion, mucus membranes moist Cardiovascular: S1S2 reg, no murmur, positive posterior tibial pulse bilateral, Lungs: CTA bilateral, no rhonchi, no rales , no accessory muscle use Abdominal: soft, nontender to palpation, no guarding, no appreciable organomegaly Ext: no gross muscle atrophy, no edema, no contractures Neuro: CN II-XI grossly intact, no focal neuro deficits Psych: Alert, oriented, appropriate affect - Labs CBC & Chem 7: 03/21/22 05:36 03/21/22 05:36 Labs: Abnormal Lab Results - Last 24 Hours (Table) 03/21/22 03/21/22 Range/Units 05:36 05:36 RBC 3.17 L (4.10-5.20) X 10*6/uL Hgb 10.0 L (12.0-15.0) g/dL Hct 30.2 L (37.2-46.3) % Anion Gap 7.90 L (10.00-18.00) mmol/L Glucose 115 H (70-110) mg/dL Calcium 8.5 L (8.7-10.3) mg/dL Total Protein 5.5 L (6.2-8.2) g/dL Albumin 3.0 L (3.8-4.9) g/dL Albumin/Globulin Ratio 1.20 L (1.60-3.17) g/dL Assessment and Plan Plan: Chronic pain secondary to Spinal stenosis with right lower extremity radiculopathy and neurogenic claudication -Postop day #3 Status post posterior lateral decompression and fusion -pain improving today -Patient will need to remain in the hospital until her pain is adequately controlled and she is ambulating well -Continue physical and occupational therapy -Family wishes for patient to be discharged home with home care #Depression and anxiety -Resume trazodone and Celexa #GERD -Resume PPIs anticipated DC home within 24 hrs Time with Patient: Less than 30
[2022-03-21] MEDS: ONDANSETRON 4 MG/2 ML VIAL IVP PRN (19:44)
[2022-03-21] MEDS: traZODone HCL 50 MG TAB PO SCH (19:45)
[2022-03-22] MEDS: CYCLOBENZAPRINE 10 MG TAB PO PRN ×2 (02:38→19:13)
[2022-03-22] MEDS: HYDROcodone/APAP 5-325MG 1 EACH TAB PO PRN ×2 (02:38→06:17)
[2022-03-22] MEDS: LACTATED RINGERS 1,000 ML IV SCH (06:12)
[2022-03-22] MEDS ORDERED: HYDROcodone/APAP 7.5-325MG 1 EACH TAB PO PRN (08:11)
[2022-03-22] MEDS: SODIUM CHLORIDE 0.9% 1,000 ML IV SCH ×2 (08:13→20:54)
[2022-03-22] MEDS: SENNOSIDES-DOCUSATE SODIUM 1 EACH TAB PO SCH (08:13)
[2022-03-22] MEDS: ASPIRIN 81 MG PO SCH (08:13)
[2022-03-22] MEDS: CITALOPRAM HYDROBROMIDE 20 MG TAB PO SCH (08:13)
[2022-03-22] MEDS: PANTOPRAZOLE 40 MG TABLET PO SCH (08:13)
[2022-03-22] MEDS: MAGNESIUM HYDROXIDE 2,400 MG/10 ML CUP PO PRN (08:17)
--- NOTE | 2022-03-22 10:11 | P.PN ---
Subjective Progress Note Date: 03/22/22 Principal diagnosis: Status post minimally invasive L3 to L4 L4 to L5 lateral decompression and fusion This is a 71 year-old female post minimally invasive L3 to L4 and L4 to L5 decompression and fusion. This is post-op day 4. The patient was evaluated at the bedside today. Her daughter is present at the bedside. The patient denies nausea, vomiting, abdominal pain, shortness of breath, and chest pain this morning. She states her pain is moderately controlled at this time. The patient has been up with assistance. Objective - Vital Signs Vital signs: Vital Signs Temp 98.1 F 03/22/22 05:00 Pulse 77 03/22/22 05:00 Resp 16 03/22/22 05:00 BP 150/76 03/21/22 21:33 Pulse Ox 92 L 03/22/22 05:00 FiO2 Intake & Output 03/21/22 03/22/22 03/22/22 18:59 06:59 18:59 Intake Total 950 590 Balance 950 590 Intake: Intake, IV Titration 950 Amount Sodium Chloride 0.9% 1, 900 000 ml @ 75 mls/hr IV . [id number] [facility] Rx#:[id number] ceFAZolin 2 gm In Sodium 50 Chloride 0.9% 50 ml @ 100 mls/hr IVPB Q8H [facility] Rx#: [id number] Oral 590 Other: Voiding Method Bedside Commode Bedside Commode # Voids 2 - Exam The patient is a 71-year-old female who is in no acute distress. She is alert and oriented 3. Abdomen is soft and nontender. Chest has good excursion with deep inspiration. Incision site is clean dry and intact. Dressing changed today. No erythema or purulent drainage. Extremities has not had neurological change from prior to surgery. She sustained dorsiflexion and plantar flexion and EHL function. She has good foot and ankle motion. Bilateral calves are soft and nontender. Neurological and circulatory status is intact. - Labs CBC & Chem 7: 03/21/22 05:36 03/21/22 05:36 Labs: Abnormal Lab Results - Last 24 Hours (Table) 03/21/22 Range/Units 05:36 Anion Gap 7.90 L (10.00-18.00) mmol/L Glucose 115 H (70-110) mg/dL Calcium 8.5 L (8.7-10.3) mg/dL Total Protein 5.5 L (6.2-8.2) g/dL Albumin 3.0 L (3.8-4.9) g/dL Albumin/Globulin Ratio 1.20 L (1.60-3.17) g/dL Assessment and Plan (1) Spinal stenosis Current Visit: Yes Status: Acute Code(s): M48.00 - SPINAL STENOSIS, SITE UNSPECIFIED SNOMED Code(s): 50921372 Plan: 1. Continue pain control, increase to [place] 7.5mg 2. Continue physical therapy and ambulation 3. Anticipate discharge home vs. skilled rehab. Family is leaning towards rehab at this time.
--- NOTE | 2022-03-22 13:39 | P.PN ---
Subjective Progress Note Date: 03/22/22 Hosp[ital course 71-year-old [place] female with past medical significant for chronic back pain with spinal stenosis with lower extremity weakness, neurogenic claudication postoperative day #0 for Laminectomy L3-4, L 4-5. Patient does not have a significant past medical history except for depression and anxiety and chronic back pain. She is alert oriented 3. She does not spe ak Hungarian her son and her granddaughter at the bedside helping with translation. Patient denies any chest pain or shortness of breath. Patient denies any nausea vomiting or abdominal pain. Subjective Patient seen and evaluated at bedside, today patient does not report any worsening of his breathing or report any new significant chest pain. Patient remains in no acute distress. Patient questions and concerns addressed at bedside, proper counseling done. Plan discussed with nursing staff. Objective Physicial exam General: non toxic, no distress, appears at stated age Derm: warm, dry Head: atraumatic, normocephalic, symmetric Eyes: EOMI, no lid lag, anicteric sclera Mouth: no lip lesion, mucus membranes moist Cardiovascular: S1S2 reg, no murmur, positive posterior tibial pulse bilateral, Lungs: CTA bilateral, no rhonchi, no rales , no accessory muscle use Abdominal: soft, nontender to palpation, no guarding, no appreciable org anomegaly Ext: no gross muscle atrophy, no edema, no contractures Neuro: CN II-XI grossly intact, no focal neuro deficits Psych: Alert, oriented, appropriate affect Assessment and Plan #Chronic pain secondary to Spinal stenosis with right lower extremity radiculopathy and neurogenic claudication -Status post posterior lateral decompression and fusion -pain improving today -Patient will need to remain in the hospital until her pain is adequately controlled and she is ambulating well -Continue physical and occupational therapy -Family wishes for patient to be discharged home with home care #Depression and anxiety -Resume trazodone and Celexa #GERD -Resume PPIs Patient medically stable, pending discharge to rehab likely on Wednesday Objective - Vital Signs Vital signs: Vital Signs Temp 98.1 F 03/22/22 05:00 Pulse 77 03/22/22 05:00 Resp 16 03/22/22 05:00 BP 150/76 03/21/22 21:33 Pulse Ox 92 L 03/22/22 05:00 FiO2 Intake & Output 03/21/22 03/22/22 03/22/22 18:59 06:59 18:59 Intake Total 950 590 Balance 950 590 Intake: Intake, IV Titration 950 Amount Sodium Chloride 0.9% 1, 900 000 ml @ 75 mls/hr IV . [id number] [facility] Rx#:[id number] ceFAZolin 2 gm In Sodium 50 Chloride 0.9% 50 ml @ 100 mls/hr IVPB Q8H [facility] Rx#: [id number] Oral 590 Other: Voiding Method Bedside Commode Bedside Commode Bedside Commode # Voids 2 - Labs CBC & Chem 7: 03/21/22 05:36 03/21/22 05:36
[2022-03-22] MEDS: HYDROcodone/APAP 7.5-325MG 1 EACH TAB PO PRN ×2 (16:33→23:24)
[2022-03-22] MEDS: traZODone HCL 50 MG TAB PO SCH (20:54)
[2022-03-23] MEDS: CYCLOBENZAPRINE 10 MG TAB PO PRN (05:04)
[2022-03-23] MEDS: HYDROcodone/APAP 7.5-325MG 1 EACH TAB PO PRN ×3 (05:04→14:46)
[2022-03-23] MEDS: LACTATED RINGERS 1,000 ML IV SCH (06:09)
[2022-03-23] MEDS: ASPIRIN 81 MG PO SCH (09:06)
[2022-03-23] MEDS: SENNOSIDES-DOCUSATE SODIUM 1 EACH TAB PO SCH (09:06)
[2022-03-23] MEDS: MAGNESIUM HYDROXIDE 2,400 MG/10 ML CUP PO PRN (09:06)
[2022-03-23] MEDS: CITALOPRAM HYDROBROMIDE 20 MG TAB PO SCH (09:06)
[2022-03-23] MEDS: PANTOPRAZOLE 40 MG TABLET PO SCH (09:07)
[2022-03-23] MEDS ORDERED: LACTULOSE 20 GM/30 ML CUP PO SCH (10:15)
[2022-03-23 10:59] LABS: Basophils # (A) 0.01 X 10*3/uL (0.00-0.10); Basophils % (A) 0.2 %; Eosinophils # (A) 0.12 X 10*3/uL (0.04-0.35); Eosinophils % (A) 2.9 %; HCT 29.3 % (37.2-46.3); HGB 9.7 g/dL (12.0-15.0); Immature Grans, Automated 0.2 %; Lymphocytes # (A) 1.39 X 10*3/uL (0.90-5.00); Lymphocytes % (A) 34.1 %; MCH 31.9 pg (27.0-32.0); MCHC 33.1 g/dL (32.0-37.0); MCV 96.4 fL (80.0-97.0); Mean Platelet Volume 10.4 fL (9.5-12.2); Monocytes # (A) 0.48 X 10*3/uL (0.20-1.00); Monocytes % (A) 11.8 %; NRBC Per 100 WBC 0 /100 WBCS (0.0-0.0); Neutrophils # (A) 2.07 X 10*3/uL (1.80-7.70); Neutrophils % (A) 50.8 %; Platelet Count 215 X 10*3/uL (140-440); RBC 3.04 X 10*6/uL (4.10-5.20); RDW 13.4 % (11.5-14.5); WBC 4.08 X 10*3/uL (4.50-10.00)
[2022-03-23 11:18] LABS: African American GFR (CKD) 113.7 (60.0-200.0); Albumin/Globulin Ratio 1.15 (1.60-3.17); Anion Gap 8.9 mmol/L (10.00-18.00); BUN/Creat Ratio 11.2 Ratio (12.00-20.00); Blood Urea Nitrogen 5.6 mg/dL (9.0-27.0); Calcium 8.6 mg/dL (8.7-10.3); Carbon Dioxide 23.1 mmol/L (20.0-27.5); Globulin 2.6 g/dL (1.6-3.3); Non-African American GFR(CKD) 98.1 (60.0-200.0); Potassium 4.4 mmol/L (3.5-5.5); Total Bilirubin 0.6 mg/dL (0.30-1.20); Total Protein 5.6 g/dL (6.2-8.2)
[2022-03-23 11:36] VITALS: BP 117/69; PULSE 81; RESP 15; TEMP 98.2
--- NOTE | 2022-03-23 12:31 | P.DS ---
Providers Date of admission: 03/20/22 11:03 Expected date of discharge: 03/23/22 Attending physician: Shena Hensley Consults: 03/18/22 12:00 Consult Physician Routine Consulting Provider: Mat Clarke Consult Reason/Comments: Medical management Do you want consulting provider notified?: Yes Primary care physician: Mat Clarke - Discharge Diagnosis(es) (1) Lumbar spinal stenosis Current Visit: Yes Status: Acute (2) Spondylolisthesis, lumbar region Current Visit: Yes Status: Acute (3) Lumbar degenerative disc disease Current Visit: Yes Status: Acute (4) Lumbar facet arthropathy Current Visit: Yes Status: Acute (5) Neurogenic claudication due to lumbar spinal stenosis Current Visit: Yes Status: Acute Hospital Course: This is a pleasant 71-year-old female who presented with L3-4 and L4-5 severe spinal stenosis, L3-4 spondylolisthesis. lumbar degenerative disc disease, lumbar facet arthrosis, and neurogenic claudication who failed outpatient conservative therapy. She was admitted for an L3-4 and L4-5 minimally invasive posterior lateral decompression and fusion with transforaminal lumbar interbody fusion. Patient speaks Bosnian and does not speak fluent Croatian. Her family has been present with her throughout her admission to the hospital to act as translators for her. Initially, the patient was progressing quite slowly postoperatively. Her low back pain was significant and she had difficulty with her mobilization. She has steadily improved over the weekend. She has had good improvement with her lower extremities bilaterally postoperatively. She is not currently complaining of any lower extremity weakness or radiculopathy bilaterally. She has been able to work with physical therapy to increase her mobility and ambulation. With the assistance of a walker she was able to ambulate to the hallways. She's been able to ambulate to the restroom. She is happy with her progress over the weekend. In regards to her lumbar spine, patient does feel she is ready for discharge home today with home care. Home care has been set up by case management. We did discuss patient has not had a bowel movement since her admission to the hospital. She is having some abdominal discomfort without significant pain. She does not have significant abdominal distention or firmness with palpation at her abdomen. We did discuss we will clear her for discharge home with home care depending she is able to have a bowel movement prior to her discharge home. Patient has been given multiple medications today to help facilitate and having a bowel movement. Condition on day of discharge will be stable. Patient will be discharged home. Patient was cleared preoperatively for surgery by Dr. Clarke. Patient currently denies any nausea, vomiting, fever, or chills. Patient is eating and voiding freely without difficulty. Dressings have been removed from the surgical sites of the lumbar spine and the right iliac crest. Incision sites remained clean and dry. Patient may shower without dressing is intact at this time. Patient should refrain from driving until at least after their first follow-up appointment in the office. Patient should avoid excessive bending, lifting, and twisting; no lifting greater than 10 pounds. A walker prescription was provided to case management who has obtained a walker for the patient. We did discuss patient may utilize his walker to aid in ambulation as needed. Patient is being clear for discharge by medicine. MAPS has been reviewed on 03/20/2022. Patient was not in the MAPS system. An "Opiod Start Talking" Form has been signed and placed in the patient's chart. A prescription has been written for Kiowa 5 mg/325 mg 1 tab every 4 hours as needed for pain, dispensed #42. Patient is also given a prescription for cyclobenzaprine 10 mg 1 tab 3 times a day as needed for muscle spasm, dispensed #60. Patient given a prescription for Senokot-S 1 tab twice a day as needed for constipation, dispensed #60. Medications are sent to the patient's regular pharmacy per request of the family. Physical Exam on day of discharge: Patient is awake, alert, and oriented 3 Vital signs stable Good chest excursion with deep inspiration and expiration Abdomen is soft with mild generalized pain with palpation without significant distention No signs or symptoms of DVT; no calf pain Extensor hallucis longus, plantarflexion, and dorsiflexion positive sustained bilateral lower extremities Patient is able to perform good active range of motion of the bilateral lower extremities independently without difficulty. Surgical dressings have been removed Surgical incision sites are clean, dry, and intact No erythema, purulence, or signs of infection at the surgical sites Evidence of bruising around the surgical sites lumbar spine and over the right iliac crest Procedures: L3-4 and L4-5 minimally invasive posterior lateral decompression and fusion with transforaminal lumbar interbody fusion Patient Condition at Discharge: Stable Plan - Discharge Summary Discharge Rx Participant: No New Discharge Prescriptions: New Cyclobenzaprine [Flexeril] 10 mg PO TID PRN #60 tab PRN Reason: Muscle Spasm HYDROcodone/APAP 5-325MG [Kiowa 5] 1 each PO Q4HR PRN #42 tab PRN Reason: Pain Sennosides-Docusate Sodium [Senokot-S] 1 tab PO BID PRN #60 tablet PRN Reason: Constipation Continue Citalopram Hydrobromide [CeleXA] 20 mg PO QAM traZODone HCL [Desyrel] 50 mg PO HS Omeprazole [PriLOSEC] 40 mg PO AC-BRKFST Acetaminophen Tab [Tylenol] 500 - 1,000 mg PO Q6HR PRN PRN Reason: Pain Discontinued nitrofurantoin macrocrystaL [Nitrofurantoin] 100 mg PO BID No Action Aspirin 81 mg PO DAILY Discharge Medication List Citalopram Hydrobromide [CeleXA] 20 mg PO QAM 01/24/16 [History] Acetaminophen Tab [Tylenol] 500 - 1,000 mg PO Q6HR PRN 03/13/22 [History] Aspirin 81 mg PO DAILY 03/13/22 [History] Omeprazole [PriLOSEC] 40 mg PO AC-BRKFST 03/13/22 [History] traZODone HCL [Desyrel] 50 mg PO HS 03/13/22 [History] Cyclobenzaprine [Flexeril] 10 mg PO TID PRN #60 tab 03/20/22 [Rx] HYDROcodone/APAP 5-325MG [[place] 5] 1 each PO Q4HR PRN #42 tab 03/20/22 [Rx] Sennosides-Docusate Sodium [Senokot-S] 1 tab PO BID PRN #60 tablet 03/20/22 [Rx] Follow up Appointment(s)/Referral(s): Graham Huang, LETICIA [PHYSICIAN SALVAGE ENGINEER] - 2 Weeks (Patient may follow-up with Graham Huang PA-C or Dr. Uriel Hensley at [facility] in 2-3 weeks following discharge. ) [facility], [NON-STAFF] - 1 Week Activity/Diet/Wound Care/Special Instructions: 1. Patient may shower without a dressing 2. Patient may use a walker to aid in ambulation as needed 3. Patient should refrain from driving until at least after their first follow- up appointment in the office 4. Patient should avoid excessive bending, twisting, lifting; avoid overhead lifting; no lifting greater than 10 pounds 5. Take medications as prescribed 6. Patient should avoid anti-inflammatory medications over the next 6 weeks postoperatively 7. Do not soak in tub Discharge Disposition: HOME WITH HOME HEALTH SERVICES
[2022-03-23] MEDS: SODIUM CHLORIDE 0.9% 1,000 ML IV SCH (14:02)
[2022-03-23] MEDS ORDERED: bisacodyL 10 MG SUPP RECTAL STA (14:26)
--- NOTE | 2022-03-23 14:34 | P.PN ---
Subjective Progress Note Date: 03/23/22 (emelyn charting seen at 1015) Patient is a 71-year-old female history of chronic back pain due to spinal stenosis, GERD, and osteoarthritis who presented for elective laminectomy. Patient seen and examined at bedside. Daughter provides interpretive services. She states her pain is well-controlled. She was unable to get up and walk in the hallway. She denies any nausea or vomiting. She has not had a bowel movement since surgery. This is typically unusual for her. She denies any abdo gaby pain but just feels full overall. General: nontoxic, no distress, appears at stated age Derm: warm, dry Head: atraumatic, normocephalic, symmetric Eyes: EOMI, no lid lag, anicteric sclera Mouth: no lip lesion, mucus membranes moist Cardiovascular: S1S2 reg, no murmur, positive posterior tibial pulse bilateral, Lungs: CTA bilateral, no rhonchi, no rales , no accessory muscle use Abdominal: soft, + bowel sounds, + distention nontender to palpation, no guarding, no appreciable organomegaly Ext: no gross muscle atrophy, no edema, no contractures Neuro: CN II-XI grossly intact, no focal neuro deficits Psych: Alert, oriented, appropriate affect Assessment/plan: Chronic pain secondary to spinal stenosis status post laminectomy -Continue with PT/OT -Plan is for discharge today per primary team Acute blood loss anemia, anticipated outcome of surgery -Iron 30 days Constipation -Actually most 1 which did not work in 4 hours, 2 glasses ordered Depression and anxiety -Continue with trazodone and Celexa GERD -PPI Patient is medically optimized for discharge at the discretion of orthopedic spine services, home med recs has been addressed/ Objective - Vital Signs Vital signs: Vital Signs Temp 98.2 F 03/23/22 11:12 Pulse 81 03/23/22 11:12 Resp 15 03/23/22 11:12 BP 117/69 03/23/22 11:12 Pulse Ox 93 L 03/23/22 11:12 FiO2 Intake & Output 03/22/22 03/23/22 03/23/22 18:59 06:59 18:59 Intake Total 900 Balance 900 Intake: Intake, IV Titration 900 Amount Sodium Chloride 0.9% 1, 900 000 ml @ 75 mls/hr IV . [id number] [facility] Rx#:[id number] Other: Voiding Method Bedside Commode Bedside Commode # Voids 2 - Labs CBC & Chem 7: 03/23/22 06:45 03/23/22 06:45 Labs: Abnormal Lab Results - Last 24 Hours (Table) 03/23/22 03/23/22 Range/Units 06:45 06:45 WBC 4.08 L (4.50-10.00) X 10*3/uL RBC 3.04 L (4.10-5.20) X 10*6/uL Hgb 9.7 L (12.0-15.0) g/dL Hct 29.3 L (37.2-46.3) % Anion Gap 8.90 L (10.00-18.00) mmol/L BUN 5.6 L (9.0-27.0) mg/dL Creatinine 0.5 L (0.6-1.5) mg/dL BUN/Creatinine Ratio 11.20 L (12.00-20.00) Ratio Calcium 8.6 L (8.7-10.3) mg/dL Total Protein 5.6 L (6.2-8.2) g/dL Albumin 3.0 L (3.8-4.9) g/dL Albumin/Globulin Ratio 1.15 L (1.60-3.17) g/dL
== END 2022-03-23 18:02 | disposition home health service (06) | DRG 454 ==
LOC: OR 05:52 → 5NMEDONC 13:53 → OR 03-19 07:45 → 5NMEDONC 03-19 07:45 → OBSVTOIN 03-20 11:03
PROVIDERS: ADMIT Orthopaedic Surgery Orthopaedic Surgery of the Spine; ATTEND Orthopaedic Surgery Orthopaedic Surgery of the Spine
PROC: 0ST20ZZ Resection of Lumbar Vertebral Disc, Open Approach (ICD-10-PCS; principal; 2022-03-18 07:30)
PROC: 01NB0ZZ Release Lumbar Nerve, Open Approach (ICD-10-PCS; principal; 2022-03-18 07:30)
PROC: 0SG1071 Fusion of 2 or more Lumbar Vertebral Joints with Autologous Tissue Substitute, Posterior Approach, Posterior Column, Open Approach (ICD-10-PCS; principal; 2022-03-18 07:30)
PROC: 0SG10AJ Fusion of 2 or more Lumbar Vertebral Joints with Interbody Fusion Device, Posterior Approach, Anterior Column, Open Approach (ICD-10-PCS; principal; 2022-03-18 07:30)
PROC: 4A11X4G Monitoring of Peripheral Nervous Electrical Activity, Intraoperative, External Approach (ICD-10-PCS; principal; 2022-03-18 07:30)
DX: M48.062 Spinal stenosis, lumbar region with neurogenic claudication (principal); D62 Acute posthemorrhagic anemia; M43.16 Spondylolisthesis, lumbar region; M51.16 Intervertebral disc disorders with radiculopathy, lumbar region; M47.26 Other spondylosis with radiculopathy, lumbar region; M51.37 Other intervertebral disc degeneration, lumbosacral region; M47.817 Spondylosis without myelopathy or radiculopathy, lumbosacral region; Z28.310 Unvaccinated for COVID-19; F32.A Depression, unspecified; F41.9 Anxiety disorder, unspecified; K21.9 Gastro-esophageal reflux disease without esophagitis; K59.00 Constipation, unspecified; G47.00 Insomnia, unspecified; M19.90 Unspecified osteoarthritis, unspecified site; E66.9 Obesity, unspecified; Z68.28 Body mass index [BMI] 28.0-28.9, adult; R26.9 Unspecified abnormalities of gait and mobility; Z79.82 Long term (current) use of aspirin; Z79.899 Other long term (current) drug therapy
CPT/HCPCS: 72100; 80048; 80053; 85025; 86850; 86891; 86900; 86901; 94760

== ENCOUNTER 2022-07-12 11:28 | Emergency (ER) | payer MEDICARE, OTHER ==
[2022-07-12 11:42] VITALS: RESP 18
[2022-07-12] MEDS ORDERED: DEXAMETHASONE SOD PHOSPHATE 10 MG/ML 1 ML VIAL IV STA (11:55)
[2022-07-12] MEDS ORDERED: METOCLOPRAMIDE 5 MG/ML 2 ML VIAL IVP STA (11:55)
[2022-07-12] MEDS ORDERED: SODIUM CHLORIDE 0.9% 1,000 ML IV STA (11:55)
[2022-07-12] MEDS ORDERED: diphenhydrAMINE 50 MG/ML 1 ML VIAL IVP STA (11:55)
[2022-07-12] MEDS ORDERED: KETOROLAC 15 MG/ML 1 ML VIAL IVP STA (11:55)
--- NOTE | 2022-07-12 12:06 | ED ---
Headache HPI - General Chief Complaint: Headache Stated Complaint: Pain in head Time Seen by Provider: 07/12/22 11:44 Mode of arrival: ambulatory Limitations: language barrier - History of Present Illness Initial Comments: Patient is a 71-year-old female presenting with chief complaint of headache. Symptoms have been ongoing for the last 2 days, patient states that she'll get s udden onset sharp pain located in the left occipital region that lasts for 20-40 seconds and then dissipates. Patient does not notice any alleviating or aggravating factors. She has been taking celecoxib prescribed by her PCP. Patient has also been taking leftover penicillin VK that was prescribed to her in May for potential dental infection. She denies any nausea, vomiting, dizziness, chest pain, difficulty breathing, recent fall or trauma, vision or hearing changes, neck pain or stiffness, palpitations, abdominal pain, radiation of pain down the arms, weakness, numbness, tingling. - Related Data Home Medications Medication Instructions Recorded Confirmed Citalopram Hydrobromide [CeleXA] 20 mg PO QAM 01/24/16 03/13/22 Acetaminophen Tab [Tylenol] 500 - 1,000 mg PO Q6HR PRN 03/13/22 03/13/22 Aspirin 81 mg PO DAILY 03/13/22 03/13/22 Omeprazole [PriLOSEC] 40 mg PO AC-BRKFST 03/13/22 03/13/22 traZODone HCL [Desyrel] 50 mg PO HS 03/13/22 03/13/22 Previous Rx's Medication Instructions Recorded Cyclobenzaprine [Flexeril] 10 mg PO TID PRN #60 tab 03/20/22 HYDROcodone/APAP 5-325MG [[place] 5] 1 each PO Q4HR PRN #42 tab 03/20/22 Sennosides-Docusate Sodium 1 tab PO BID PRN #60 tablet 03/20/22 [Senokot-S] Ferrous Sulfate [Slow Fe] 142 mg PO DAILY #30 tab 03/23/22 Allergies Allergy/AdvReac Type Severity Reaction Status Date / Time No Known Allergies Allergy Verified 03/18/22 06:32 Review of Systems ROS Statement: Those systems with pertinent positive or pertinent negative responses have been documented in the HPI. ROS Other: All systems not noted in ROS Statement are negative. Past Medical History Past Medical History: GERD/Reflux, Osteoarthritis (OA) History of Any Multi-Drug Resistant Organisms: None Reported Past Surgical History: No Surgical Hx Reported Past Anesthesia/Blood Transfusion Reactions: No Reported Reaction Additional Past Anesthesia/Blood Transfusion Reaction / Comment(s): no hx blood transfusion Past Psychological History: Anxiety, Depression Smoking Status: Never smoker Past Alcohol Use History: None Reported Past Drug Use History: None Reported - Past Family History Mother Family Medical History: No Reported History General Exam Limitations: language barrier (Patient speaks Bosnian, daughter is at bedside for translation) General appearance: alert, in no apparent distress Head exam: Present: atraumatic, normocephalic, normal inspection Eye exam: Present: normal appearance, PERRL, EOMI. Absent: scleral icterus, conjunctival injection, periorbital swelling Neck exam: Present: normal inspection, full ROM. Absent: tenderness, meningismus Respiratory exam: Present: normal lung sounds bilaterally. Absent: respiratory distress, wheezes, rales, rhonchi, stridor Cardiovascular Exam: Present: regular rate, normal rhythm, normal heart sounds. Absent: systolic murmur, diastolic murmur, rubs, gallop, clicks Extremities exam: Present: normal inspection, full ROM Neurological exam: Present: alert, oriented X3, CN II-XII intact Expanded Patient oriented to: Present: person, place, time Speech: Present: fluid speech Cranial nerves: EOM's Intact: Normal, Facial Sensation: Normal Sensory exam: Upper Extremity Light Touch: Normal, Lower Extremity Light Touch: Normal Motor strength exam: RUE: 5, LUE: 5, RLE: 5, LLE: 5 Eye Response: (4) open spontaneously Motor Response: (6) obeys commands Verbal Response: (5) oriented [place] Total: 15 Psychiatric exam: Present: normal affect, normal mood Skin exam: Present: warm, dry, intact, normal color. Absent: rash Course Vital Signs 07/12/22 07/12/22 11:35 14:48 Temperature 98.4 F 98.3 F Pulse Rate 70 68 Respiratory 18 18 Rate Blood Pressure 145/86 156/89 O2 Sat by Pulse 98 97 Oximetry Medical Decision Making - Medical Decision Making Patient is a 71-year-old female presenting for evaluation of headaches. For the last 2 days patient has had sharp shooting pain in the occipital region that lasts for about 20 seconds and then dissipates. It comes on at random. Patient has been taking celecoxib for symptoms, gets little relief. On examination there are no focal neurological deficits. Lab work is grossly negative. CT of the brain without contrast and CT of the head showed no acute intracranial process. Symptoms are likely due to occipital neuralgia. I educated the patient and her family on these findings, her daughters are present at bedside to serve as translators as she speaks Bosnian. Educated on supportive treatment. Follow-up with PCP. Report back to ER with any new or worsening symptoms. Discussed return parameters and answered all questions. Patient conveyed verbal understanding and agreed to the plan. I discussed this case in detail with my attending Dr. Horta - Lab Data Result diagrams: 07/12/22 12:23 07/12/22 12:23 Lab Results 07/12/22 07/12/22 07/12/22 Range/Units 12:23 12:23 12:23 WBC 3.9 (3.8-10.6) k/uL RBC 3.78 L (3.80-5.40) m/uL Hgb 11.8 (11.4-16.0) gm/dL Hct 35.3 (34.0-46.0) % MCV 93.3 (80.0-100.0) fL MCH 31.2 (25.0-35.0) pg MCHC 33.4 (31.0-37.0) g/dL RDW 13.8 (11.5-15.5) % Plt Count 197 (150-450) k/uL MPV 8.8 Neutrophils % 35 % Lymphocytes % 53 % Monocytes % 6 % Eosinophils % 2 % Basophils % 0 % Neutrophils # 1.4 (1.3-7.7) k/uL Lymphocytes # 2.1 (1.0-4.8) k/uL Monocytes # 0.2 (0-1.0) k/uL Eosinophils # 0.1 (0-0.7) k/uL Basophils # 0.0 (0-0.2) k/uL PT 11.2 (9.0-12.0) sec INR 1.0 (<1.2) APTT 23.2 (22.0-30.0) sec Sodium 141 (137-145) mmol/L Potassium 4.9 (3.5-5.1) mmol/L Chloride 108 H (98-107) mmol/L Carbon Dioxide 27 (22-30) mmol/L Anion Gap 6 mmol/L BUN 15 (7-17) mg/dL Creatinine 0.58 (0.52-1.04) mg/dL Est GFR (CKD-EPI)AfAm >90 (>60 ml/min/1.73 sqM) Est GFR (CKD-EPI)NonAf >90 (>60 ml/min/1.73 sqM) Glucose 87 (74-99) mg/dL Calcium 9.1 (8.4-10.2) mg/dL Total Bilirubin 0.8 (0.2-1.3) mg/dL AST 22 (14-36) U/L ALT 17 (4-34) U/L Alkaline Phosphatase 65 (38-126) U/L Total Protein 6.7 (6.3-8.2) g/dL Albumin 3.9 (3.5-5.0) g/dL Disposition Clinical Impression: Occipital neuralgia Disposition: HOME SELF-CARE Condition: Good Instructions (If sedation given, give patient instructions): Acute Headache (ED) Additional Instructions: Follow-up with PCP. Report back to ER with any new or worsening symptoms. Take Motrin and Tylenol as needed for pain control. Stay well-hydrated. Using heat and massage on the muscles of the shoulder may help with symptoms. May take Phi adryl at bedtime if needed. Is patient prescribed a controlled substance at d/c from ED?: No Referrals: Mat Clarke MD [Primary Care Provider] - 1-2 days Time of Disposition: 14:44
[2022-07-12 12:38] LABS: Basophils % (A) 0 %; Eosinophils # (A) 0.1 k/uL (0-0.7); Eosinophils % (A) 2 %; HCT 35.3 % (34.0-46.0); HGB 11.8 gm/dL (11.4-16.0); Lymphocytes # (A) 2.1 k/uL (1.0-4.8); Lymphocytes % (A) 53 %; MCH 31.2 pg (25.0-35.0); MCHC 33.4 g/dL (31.0-37.0); MCV 93.3 fL (80.0-100.0); Mean Platelet Volume 8.8; Monocytes # (A) 0.2 k/uL (0-1.0); Monocytes % (A) 6 %; Neutrophils # (A) 1.4 k/uL (1.3-7.7); Neutrophils % (A) 35 %; Platelet Count 197 k/uL (150-450); RBC 3.78 m/uL (3.80-5.40); RDW 13.8 % (11.5-15.5); WBC 3.9 k/uL (3.8-10.6)
[2022-07-12 12:53] LABS: Partial Thromboplastin Time 23.2 sec (22.0-30.0); Prothrombin Time 11.2 sec (9.0-12.0)
[2022-07-12 12:55] LABS: ALT 17 U/L (4-34); AST 22 U/L (14-36); African American GFR (CKD) >90 (>60 ml/min/1.73 sqM); Albumin 3.9 g/dL (3.5-5.0); Alkaline Phosphatase 65 U/L (38-126); Anion Gap 6 mmol/L; Blood Urea Nitrogen 15 mg/dL (7-17); Calcium 9.1 mg/dL (8.4-10.2); Carbon Dioxide 27 mmol/L (22-30); Chloride 108 mmol/L (98-107); Glucose 87 mg/dL (74-99); Non-African American GFR(CKD) >90 (>60 ml/min/1.73 sqM); Potassium 4.9 mmol/L (3.5-5.1); Sodium 141 mmol/L (137-145); Total Bilirubin 0.8 mg/dL (0.2-1.3); Total Protein 6.7 g/dL (6.3-8.2)
--- NOTE | 2022-07-12 13:35 | CT ---
EXAMINATION TYPE: CT brain wo con CT DLP: 1099.6 mGycm, Automated exposure control for dose reduction was used. DATE OF EXAM: 07/12/2022 1:10 PM COMPARISON: None. CLINICAL INDICATION:Female, 71 years old with history of Headache, Headache since Wednesday TECHNIQUE: Brain: Axial CT images of the brain were obtained with coronal and sagittal reformats created and rev iewed. Contrast used: None. Oral contrast used: None. FINDINGS: Brain: Extra-axial spaces: No abnormal extra-axial fluid collections. Ventricular system: Within normal limits Cerebral parenchyma: No acute intraparenchymal hemorrhage or mass effect. The ramos-white junction is well differentiated. Cerebellum: Unremarkable. Mass effect: No evidence of midline shift. Intracranial vasculature: Atherosclerotic calcifications of the intracranial vessels. Soft tissues: Normal. Calvarium/osseous structures: No depressed skull fracture. Paranasal sinuses and mastoid air cells: Mild scattered paranasal sinus disease. Visualized orbits: Orbital contents are intact. IMPRESSION: No acute intracranial process.
--- NOTE | 2022-07-12 14:32 | CT ---
CTA of head. HISTORY: Headache. COMPARISON: None. TECHNIQUE: CT of the head was performed according to protocol following IV contrast material. 3-D pos tprocessing was performed. FINDINGS: The intracerebral arterial circulation is normal without sizable aneurysm sac, vascular malformation, stenosis or segmental occlusion.. IMPRESSION: Unremarkable head CTA.
[2022-07-12 14:53] VITALS: BP 156/89; PULSE 68; TEMP 98.3
== END 2022-07-12 14:52 | disposition home or self-care (01) ==
LOC: EC 11:28
DX: M54.81 Occipital neuralgia (principal); K21.9 Gastro-esophageal reflux disease without esophagitis; M19.90 Unspecified osteoarthritis, unspecified site
CPT/HCPCS: 36415; 80053; 85025; 85610; 85730; 70496; 70450; 99284; 96374; 96375 ×3; 96361; J1200; J1100; J2765; J1885; Q9967

== ENCOUNTER → 2023-06-29 | Outpatient (CLI) | payer MEDICARE, OTHER ==
--- NOTE | 2023-06-30 15:46 | MM ---
Reason for Exam: Screening (asymptomatic). Last mammogram was performed 2 year(s) and 5 month(s) ago. Patient History: Menarche at age 13. First Full-Term at age 21. Postmenopausal. Risk Values: Zaina 5 year model risk: 1.6%. NCI Lifetime model risk: 4.3%. Prior Study Comparison: 07/10/2013 Screening Mammogram, [facility]. 01/10/2021 Bilateral Screening Mammogram, [facility]. Tissue Density: There are scattered fibroglandular densities. Findings: Analyzed By CAD. Findings there is symmetrical stable. No significant change is evident. No suspicious groups of microcalcifications, spiculated or lobular masses, architectural distortion or other secondary signs of malignancy are mammographically apparent. Overall Assessment: Benign, BI-RAD 2 Management: Screening Mammogram of both breasts in 1 year. A negative mammogram report should not preclude additional follow up of suspicious palpable abnormalities. Patient should continue monthly self breast exam. A clinical breast exam by your physician is recommended on an annual basis and results should be correlated with mammographic findings. Electronically signed and approved by: Bello Reeder D.O. Radiologis
== END | disposition home or self-care (01) ==
LOC: RADMAMWWP 08:04
PROVIDERS: ATTEND Family Medicine
DX: Z12.31 Encounter for screening mammogram for malignant neoplasm of breast (principal); Z78.0 Asymptomatic menopausal state
CPT/HCPCS: 77063; 77067

== ENCOUNTER → 2024-10-03 | Outpatient (CLI) | payer MEDICARE, OTHER ==
--- NOTE | 2024-10-03 13:47 | CT ---
EXAMINATION TYPE: CT abdomen pelvis wo con DATE OF EXAM: 10/03/2024 COMPARISON: None CLINICAL INDICATION: Female, 73 years old with history of R10.9 AB PAIN; PHH, abdominal pain TECHNIQUE: CT scan of the abdomen and pelvis is performed without oral or IV contrast. CT DLP: [address] CTDI: mGy Automated exposure control for dose reduction was used. FINDINGS: Within the limitations of a non-contrast study, the following observations are made. There is a 4-5 mm left lower lobe pulmonary nodule. If this is a high risk patient then CT thorax is recommended for further evaluation.. Gallbladder is normal and there is no gallstone, wall thickening, pericholecystic fluid or distention . There is no biliary ductal dilatation. There is no organomegaly of the liver, pancreas, spleen or adrenal glands. There are no renal calcifications or hydronephrosis. The caliber of the abdominal aorta is normal and there is no retroperitoneal adenopathy or hemorrhage . The bowel loops are normal in caliber is no evidence of obstruction. No inflammatory changes are iden tified in the mesentery and there is no free intraperitoneal air or fluid. There is no pelvic mass, free fluid, abscess or adenopathy. There are multifocal uterine calcificatio ns consistent with involuted fibroids. There is laminectomy and fusion from L3 through L5. IMPRESSION: 1. No acute changes within the abdomen or pelvis. 2. 4-5 mm mm left lower lobe pulmonary nodule. If this is a high-risk patient then CT thorax is recom mended to evaluate the entirety of the lung parenchyma. [facility], , 10/03/2024 1:44 PM
== END | disposition home or self-care (01) ==
LOC: RADCTMAIN 12:51
PROVIDERS: ATTEND Family Medicine
DX: R10.9 Unspecified abdominal pain (principal); R91.1 Solitary pulmonary nodule
CPT/HCPCS: 74176